=== PATIENT | male | born 1940 | race African-American/Black ===

== ENCOUNTER 2017-01-24 10:07 | Emergency (ER) | payer OTHER, MEDICARE ==
[~2017-01-24] VITALS: Ht 165.1 cm; Wt 76.0 kg
[2017-01-24 12:16] LABS: BASOPHILS % 0.4 % (0.0-2.0); EOSINOPHILS % 0.6 % (0.0-5.0); HEMATOCRIT. 35.4 % (42.0-52.0); HEMOGLOBIN. 11.5 g/dL (14.0-18.0); LYMPHOCYTES % 22.5 % (20.0-50.0); MEAN CORPUSCULAR HEMOGLOBIN 29.3 pg (28.0-32.0); MEAN CORPUSCULAR HGB CONC 32.5 g/dL (31.0-37.0); MEAN CORPUSCULAR VOLUME 90.2 fL (80.0-94.0); MEAN PLATELET VOLUME 9.2 fl (7.4-10.4); MONOCYTES % 6.6 % (2.0-8.0); NEUTROPHILS % 69.9 % (40.0-76.0); PLATELET 178 x1000/uL (130-400); RED BLOOD CELL COUNT 3.93 mill/uL (4.7-6.1); WHITE BLOOD COUNT 6.5 x1000/uL (4.5-11.0)
[2017-01-24 12:23] LABS: CHLORIDE 108 mEq/L (98-107); INDEX HEMOLYSI 1 (1-3); INDEX ICTERIC 1 (1-4); INDEX LIPEMIC 1 (1-3)
[2017-01-24 12:29] LABS: ALANINE AMINOTRANSFERASE 27 IU/L (13-61); ALBUMIN 3.1 g/dL (3.4-5.0); ANION GAP 11; CALCIUM 8.1 mg/dL (8.5-10.1); CARBON DIOXIDE 28 mEq/L (21-32); LIPASE 155 IU/L (73-393); UREA NITROGEN BLOOD 15 mg/dL (7-21); eGFR > 60 mL/min (>60)
[2017-01-24 12:31] LABS: D-DIMER 0.29 mg/L FEU (<0.50); INR 1.4; PARTIAL THROMBOPLASTIN TIME 31.3 sec (24.0-34.0); PROTHROMBIN TIME 14.2 sec
[2017-01-24 12:32] LABS: TROPONIN I 0.03 ng/mL (0.00-0.04)
[2017-01-24 16:00] VITALS: BP 132/65
== END 2017-01-24 16:02 | disposition home or self-care (01) ==
LOC: ER 10:27
DX: T44.6X5A Adverse effect of alpha-adrenoreceptor antagonists, initial encounter (principal); E78.00 Pure hypercholesterolemia, unspecified; F12.10 Cannabis abuse, uncomplicated; Z87.891 Personal history of nicotine dependence; Y93.89 Activity, other specified; Y99.9 Unspecified external cause status; Y92.89 Other specified places as the place of occurrence of the external cause; I10 Essential (primary) hypertension
CPT/HCPCS: 36415; 71010; 80053; 83690; 84484; 85025; 85379; 85610; 85730; 93005; 99285; J7030; Z7610